=== PATIENT | female | born 1960 | race Caucasian/White ===

== ENCOUNTER 2020-07-04 13:07 | Emergency (ER) | payer MEDICARE ==
[~2020-07-04] VITALS: Ht 165.1 cm; Wt 83.7 kg
[2020-07-04 13:27] VITALS: BP 141/86
--- NOTE | 2020-07-04 13:41 | PHYS DOC ---
Past History Past Medical History: Diabetes, Heart Disease Past Surgical History: Smoking: Non-smoker General Adult EDM: Chief Complaint: ABDOMINAL PAIN HPI: HPI: Patient is a 39-year-old female who presents with several weeks of right upper quadrant pain. Pain is gotten worse over the several days. Patient describes the pain as a dull pain that radiates to her back but is located in right upper quadrant. Pain is worse with eating especially fatty foods. Patient has nausea but no vomiting. No fever no chills no cough no shortness of breath. Review of Systems: Review of Systems: Constitutional: Denies fever or chills Eyes: Denies change in visual acuity HENT: Denies nasal congestion or sore throat Respiratory: Denies cough or shortness of breath Cardiovascular: Denies chest pain or edema GI: Complains of right upper quadrant pain, nausea but no vomiting diarrhea or blood in stools : Denies dysuria Musculoskeletal: Denies joint pain but has back pain Integument: Denies rash Neurologic: Denies headache, focal weakness or sensory changes Endocrine: Denies polyuria or polydipsia Lymphatic: Denies swollen glands Psychiatric: Denies depression or anxiety Heart Score: Risk Factors: Risk Factors: DM, Current or recent (<one month) smoker, HTN, HLP, family history of CAD, obesity. Risk Scores: Score 0 - 3: 2.5% MACE over next 6 weeks - Discharge Home Score 4 - 6: 20.3% MACE over next 6 weeks - Admit for Clinical Observation Score 7 - 10: 72.7% MACE over next 6 weeks - Early Invasive Strategies Current Medications: Current Meds: Current Medications Medications (Trade) Dose Ordered Sig/Nico Start Time Stop Time Status Last Admin Dose Admin Morphine Sulfate (Morphine 4mg Syringe) 4 mg 1X ONCE 07/04/20 13:45 07/04/20 13:46 UNV Ondansetron HCl (Zofran) 4 mg 1X ONCE 07/04/20 13:45 07/04/20 13:46 UNV Sodium Chloride 1,000 ml @ 1,000 mls/hr 1X ONCE 07/04/20 13:45 07/04/20 14:44 UNV Allergies: Allergies: Allergies Coded Allergies Type Severity Reaction Last Updated Verified Sulfa (Sulfonamide Antibiotics) Allergy Intermediate 07/04/20 Yes lamotrigine Allergy Unknown 07/04/20 Yes Physical Exam: PE: Constitutional: Well developed, well nourished, no acute distress, non-toxic appearance. [] HENT: Normocephalic, atraumatic, bilateral external ears normal, no trismus nose normal. [] Eyes: PERRLA, EOMI, conjunctiva normal, no discharge. [] Neck: Normal range of motion, no tenderness, supple, no stridor. [] Cardiovascular:Heart rate regular rhythm, peripheral pulse intact, cap refill is brisk Lungs & Thorax: Bilateral breath sounds clear, no respiratory distress Abdomen: Soft with tenderness right upper quadrant without guarding or rebound no masses no pulsatile masses Skin: Warm, dry, no erythema, no rash. [] Back: No tenderness, no CVA tenderness. [] Extremities: No tenderness, no cyanosis, no clubbing, ROM intact, no edema. [] Neurologic: Alert and oriented X 3, normal motor function, normal sensory function, no focal deficits noted. [] Psychologic: Affect normal, judgement normal, mood normal. [] Current Patient Data: Labs: Laboratory Tests Test 07/04/20 13:21 White Blood Count 4.9 x10^3/uL Red Blood Count 4.62 x10^6/uL Hemoglobin 13.6 g/dL Hematocrit 41.6 % Mean Corpuscular Volume 90 fL Mean Corpuscular Hemoglobin 29 pg Mean Corpuscular Hemoglobin Concent 33 g/dL Red Cell Distribution Width 14.5 % Platelet Count 143 x10^3/uL Neutrophils (%) (Auto) 51 % Lymphocytes (%) (Auto) 37 % Monocytes (%) (Auto) 9 % Eosinophils (%) (Auto) 3 % Basophils (%) (Auto) 1 % Neutrophils # (Auto) 2.5 x10^3uL Lymphocytes # (Auto) 1.8 x10^3/uL Monocytes # (Auto) 0.4 x10^3/uL Eosinophils # (Auto) 0.1 x10^3/uL Basophils # (Auto) 0.0 x10^3/uL Sodium Level 138 mmol/L Potassium Level 3.4 mmol/L Chloride Level 102 mmol/L Carbon Dioxide Level 24 mmol/L Anion Gap 12 Blood Urea Nitrogen 9 mg/dL Creatinine 0.8 mg/dL Estimated GFR (Cockcroft-Gault) 73.9 BUN/Creatinine Ratio 11 Glucose Level 150 mg/dL Calcium Level 9.1 mg/dL Total Bilirubin 3.0 mg/dL Aspartate Amino Transf (AST/SGOT) 244 U/L Alanine Aminotransferase (ALT/SGPT) 336 U/L Alkaline Phosphatase 612 U/L Total Protein 7.6 g/dL Albumin 3.2 g/dL Albumin/Globulin Ratio 0.7 Lipase 28 U/L Current Medications Medications (Trade) Dose Ordered Sig/Nico Route PRN Reason Start Time Stop Time Status Last Admin Dose Admin Ondansetron HCl (Zofran) 4 mg 1X ONCE IVP 07/04/20 13:45 07/04/20 13:55 DC 07/04/20 14:05 Sodium Chloride 1,000 ml @ 1,000 mls/hr 1X ONCE IV 07/04/20 13:45 07/04/20 14:44 DC 07/04/20 14:05 Morphine Sulfate (Morphine 4mg Syringe) 4 mg 1X ONCE IV 07/04/20 13:45 07/04/20 13:55 DC 07/04/20 14:05 Vital Signs: Vital Signs Date Time Temp Pulse Resp B/P (MAP) Pulse Ox O2 Delivery O2 Flow Rate FiO2 07/04/20 13:27 98.0 84 18 141/86 (104 98 EKG: EKG: [] Radiology/Procedures: Radiology/Procedures: [][place] [address] IMAGING REPORT Signed PATIENT: DALE ALMONTE ACCOUNT: [id number] : 1960 LOCATION: ER AGE: 59 SEX: F EXAM STATUS: REG ER ORD. PHYSICIAN: BARRETT SEXTON MD REASON: ruq pain PROCEDURE: ABDOMEN LTD Limited abdominal ultrasound 07/04/2020. Reason for exam: Right upper quadrant pain. FINDINGS: No focal liver parenchymal abnormality is seen. Echogenicity of the liver may indicate mild fatty infiltration. The biliary tree appears dilated, with common bile duct diameter of 14 mm. No filling defect is seen. The gallbladder was distended at the time of the exam, measuring up to 13 cm. There is some internal sludge and debris. No shadowing stones are demonstrated. Gallbladder wall thickness appears normal at 1 to 2 mm. There is no adjacent fluid. Right kidney appears normal. It measures 11.5 cm in length. The pancreas was not well seen due to bowel gas. Visualized segment of the IVC appears normal. IMPRESSION: Gallbladder distention with internal sludge. No stones are seen. Dilated common bile duct. Findings raise the possibility of distal CBD stone. MRI abdomen/MRCP may be useful for further evaluation. Electronically signed by: Nusrat Barrera Jr., MD (07/04/2020 2:14 PM) [facility] DICTATED AND SIGNED BY: NUSRAT BARRERA Jr, MD DATE: 07/04/20 1414 CC: BARRETT SEXTON MD; DANE WOO ~ Course & Med Decision Making: Course & Med Decision Making Pertinent Labs and Imaging studies reviewed. (See chart for details) [] 59-year-old female presents with right upper quadrant pain. Patient has a dilated common bile duct and transaminitis with gallstones. Patient will need antibiotics and transfer to [place], accepted the patient in transfer. Patient clinically improved on reassessment. Rudolph Disclaimer: Rudolph Disclaimer: This electronic medical record was generated, in whole or in part, using a voice recognition dictation system. Departure Departure: Impression: Primary Impression: Common bile duct stone Additional Impressions: Transaminitis Right upper quadrant pain Disposition: 02 XFER [facility] HOSP ([place]) Condition: STABLE Referrals: DANE WOO (PCP) Justification of Admission: Justification of Admission: Justification of Admission Dx: N/A BARRETT SEXTON MD Jul 04, 2020 13:41
[2020-07-04] MEDS ORDERED: IV NORMAL SALINE 1,000ML 1,000 ML IV ONE (13:45)
[2020-07-04] MEDS ORDERED: ONDANSETRON PF 4 MG/2 ML VIAL. IVP ONE (13:45)
[2020-07-04] MEDS ORDERED: MORPHINE SULFATE 4 MG/ML DISP.SYRIN. IV ONE (13:45)
[2020-07-04 14:02] LABS: BASO % 1 % (0-3); EOS # 0.1 x10^3/uL (0.0-0.7); EOS % 3 % (0-3); HEMATOCRIT 41.6 % (36.0-47.0); HEMOGLOBIN 13.6 g/dL (12.0-15.5); LYMPH # 1.8 x10^3/uL (1.0-4.8); LYMPH % 37 % (24-48); MEAN CORPUSCULAR HEMOGLOBIN 29 pg (25-35); MEAN CORPUSCULAR HGB CONC 33 g/dL (31-37); MEAN CORPUSCULAR VOLUME 90 fL (79-100); MONO # 0.4 x10^3/uL (0.0-1.1); MONO % 9 % (0-9); NEUT # 2.5 x10^3uL (1.8-7.7); NEUT % 51 % (31-73); PLATELET COUNT 143 x10^3/uL (140-400); RED BLOOD COUNT 4.62 x10^6/uL (3.50-5.40); RED CELL DISTRIBUTION WIDTH 14.5 % (11.5-14.5); WHITE BLOOD COUNT 4.9 x10^3/uL (4.0-11.0)
[2020-07-04 14:04] LABS: CALCIUM 9.1 mg/dL (8.5-10.1); CREATININE 0.8 mg/dL (0.6-1.0); GFR 73.9; POTASSIUM 3.4 mmol/L (3.5-5.1)
[2020-07-04 14:10] LABS: ALBUMIN 3.2 g/dL (3.4-5.0); ALBUMIN/GLOBULIN RATIO 0.7 (1.0-1.7); TOTAL PROTEIN 7.6 g/dL (6.4-8.2)
--- NOTE | 2020-07-04 14:17 | RAD ---
Limited abdominal ultrasound 07/04/2020. Reason for exam: Right upper quadrant pain. FINDINGS: No focal liver parenchymal abnormality is seen. Echogenicity of the liver may indicate mild fatty infiltration. The biliary tree appears dilated, with common bile duct diameter of 14 mm. No filling defect is seen. The gallbladder was distended at the time of the exam, measuring up to 13 cm. There is some internal sludge and debris. No shadowing stones are demonstrated. Gallbladder wall thickness appears normal at 1 to 2 mm. There is no adjacent fluid. Right kidney appears normal. It measures 11.5 cm in length. The pancreas was not well seen due to bowel gas. Visualized segment of the IVC appears normal. IMPRESSION: Gallbladder distention with internal sludge. No stones are seen. Dilated common bile duct. Findings raise the possibility of distal CBD stone. MRI abdomen/MRCP may be useful for further evaluation. Electronically signed by: Steven Barrera Jr., MD (07/04/2020 2:14 PM) [facility]
[2020-07-04] MEDS ORDERED: PIPERACILLIN/TAZOBACTAM 3.375 GM in IV NORMAL SALINE 50ML 50 ML IV ONE (15:15)
[2020-07-04] MEDS ORDERED: IV NORMAL SALINE 50ML 50 ML ONE (15:28)
[2020-07-04] MEDS ORDERED: PIPERACILLIN/TAZOBACTAM 3.375 GM VIAL IV ONE (15:28)
[2020-07-04 16:11] LABS: BACTERIA,URINE MANY /HPF (0-FEW); BILIRUBIN,URINE SMALL (NEG); CLARITY,URINE HAZY; COLOR,URINE AMBER; GLUCOSE,URINE NEG (NEG); NITRITE,URINE POS (NEG); SQUAMOUS EPITHELIAL CELL,UR FEW /LPF; WBC,URINE >40 /HPF (0-4)
--- NOTE | 2020-07-09 15:01 | NUR ---
IP: notified IP at [facility] of COVID result.
== END 2020-07-04 16:36 | disposition short-term general hospital (02) ==
LOC: ER 13:07
DX: K80.50 Calculus of bile duct without cholangitis or cholecystitis without obstruction (principal); R74.0 Nonspecific elevation of levels of transaminase and lactic acid dehydrogenase [LDH]; Z20.828 Contact with and (suspected) exposure to other viral communicable diseases; E11.9 Type 2 diabetes mellitus without complications; Z98.890 Other specified postprocedural states; Z88.2 Allergy status to sulfonamides; Z88.8 Allergy status to other drugs, medicaments and biological substances
CPT/HCPCS: 36415; 76705; 80053; 81001; 83690; 85025; 87077; 87086; 87186; 87426; 96361; 96365; 96375; 99285; J2270; J2405; J2543; J7030; U0003